=== PATIENT | male | born 1960 | race Caucasian/White ===

== ENCOUNTER 2023-01-21 23:43 | Inpatient (IN) | payer MEDICARE, MEDICAID, SELFPAY ==
[2023-01-21 23:45] VITALS: BP 163/93; PULSE 73; RESP 18; TEMP 36.6; O2SAT 98; BMI 21.7
--- NOTE | 2023-01-21 23:52 | ECG_ITS ---
[facility] Test Date: 2023-01-22 Pat Name: Mohinder Bullard Department: Room: 129 Gender: Male Stunt Man: : 1960 Requested By: Art Paris Order Number: [id number] Mahi MD: Dexter Marie M.D. Measurements Intervals Mayo Rate: 73 P: 66 HI: 138 QRS: 59 QRSD: 112 T: 74 QT: 390 QTc: 433 Interpretive Statements SINUS RHYTHM WITH FREQUENT VENTRICULAR PREMATURE COMPLEXES IN A BIGEMINAL PATTERN LEFT ATRIAL ENLARGEMENT [-0.15mV P-WAVE IN V1/V2] MODERATE INTRAVENTRICULAR CONDUCTION DELAY [110+ ms QRS DURATION] Compared to ECG 01/28/2017 12:21:06 Ventricular premature complex(es) now present Intraventricular conduction delay now present Sinus arrhythmia no longer present Indeterminate axis no longer present Right ventricular hypertrophy no longer present T-wave abnormality no longer present Electronically Signed On 01-22-2023 8:47:02 CDT by Dexter Marie M.D. [id number]
[2023-01-22 00:13] LABS: Basophils # 0.1 10^3/uL (0.0-0.1); Basophils % 0.5 %; Eosinophils # 0.5 10^3/uL (0.0-0.8); Eosinophils % 4.2 %; Hematocrit 42.4 % (42.0-52.0); Hemoglobin 13.7 g/dL (11.7-16.6); Lymphocytes # 3.6 10^3/uL (0.8-4.8); Lymphocytes % 31.2 %; Mean Corpuscular HGB Conc 32.3 g/dL (30.0-36.0); Mean Corpuscular Hemoglobin 30.6 pg (28.0-34.0); Mean Corpuscular Volume 94.6 fl (80-94); Mean Platelet Volume 10.5 fL (7.4-10.4); Monocytes # 1.2 10^3/uL (0.2-0.9); Monocytes % 10.6 %; Neutrophils # 6.16 10^3/uL (1.8-7.7); Neutrophils % 53.2 %; Nucleated Red Blood Cells % 0 %; Platelet Count 152 10^3/cmm (130-400); Red Blood Count 4.48 10^6/uL (4.1-5.3); Red Cell Distribution Width 13.9 % (12.1-15.1); White Blood Count 11.6 10^3/uL (4.0-10.0)
--- NOTE | 2023-01-22 00:16 | W.ED.PSYCHS ---
HPI - Psych General: Chief Complaint: Psychiatric Symptoms Stated Complaint: MANIC Time Seen by Provider: 01/22/23 00:15 Source: patient and EMS Mode of arrival: EMS Limitations: no limitations History of Present Illness: 62-year-old male who had called EMS for faiza I spoke to patient history is very difficult he is extremely manic he will talk for 10 minutes straight on different subjects with flight of ideas never did really get to the point. I did speak to his she states that he supposed be on sertraline he has not been sleeping over the last week he is hyper focused he has had some hallucinations thinking the devil is out to get him she states that he has made no suicidal homicidal thoughts. Here patient is not safe on his own and needs psychiatric help with acutely Associated symptoms: Reports auditory hallucinations Review of Systems Const: Denies: fever(s), chills, body aches or change in appetite Eyes: Denies: blurry vision or eye discomfort ENMT: Denies: throat pain or dental pain Resp: Denies: dyspnea GI: Denies: abdominal pain, nausea, vomiting or diarrhea Musc: Denies: neck pain or back pain Skin/Breast: Denies: rash Neuro: Denies: headache(s) Psych: Reports: sleeping less, paranoia, difficulty concentrating and auditory hallucinations [place]/Lymph: Denies: easy bruising All/Imm: Denies: urticaria Physical Exam Const: COMMON NORMALS: patient oriented x3 and healthy appearing HENMT: COMMON NORMALS: normocephalic and atraumatic HEAD & SCALP: normocephalic and atraumatic Eye: COMMON NORMALS: EOMs intact bilaterally Neck/C-Spine: COMMON NORMALS: full ROM and supple Chest: COMMONS NORMALS: normal inspection of the chest and normal palpation of entire chest wall Resp: COMMON NORMALS: normal respiratory effort, No retractions, No use of accessory muscles and clear to auscultation bilaterally AUSCULTATION: clear to auscultation bilaterally Cardio: COMMON NORMALS: regular rate, regular rhythm and No murmurs present (Cardio) RATE: regular rate RHYTHM: regular rhythm GI: COMMON NORMALS: Normal to inspection, nondistended, normoactive bowel sounds present, Soft to palpation, non-tender and no masses PALPATION: Yes Soft to palpation Extremity: COMMON NORMALS: normal to inspection and full ROM Neuro: COMMON NORMALS: patient oriented x3, moves all extremities and no focal motor deficits Psych: COMMON NORMALS: cooperative; negative for mental status grossly normal and negative for Normal thought process present SPEECH: Yes excessive THOUGHT PROCESS: abnormal, Flight of ideas present and racing thoughts INSIGHT: Good insight present (Psych) Skin: COMMON NORMALS: no rashes or lesions noted and no wounds GENERAL SKIN EXAM: no rashes or lesions noted Course Vital Signs: Vital signs: Vital Signs Temperature 98 F 01/21/23 23:45 Pulse Rate 73 01/21/23 23:45 Respiratory Rate 18 01/21/23 23:45 Blood Pressure 163/93 01/21/23 23:45 Pulse Oximetry 98 01/21/23 23:45 MDM - Psych Medical Decision Making Patient presents here with acute psychosis likely a manic episode spoke to Dr. Moise patient placed under 96-hour hold and will admit Lab Data 01/22/23 00:04 01/22/23 00:04 Laboratory Results WBC 11.6 10^3/uL (4.0-10.0) H 01/22/23 00:04 RBC 4.48 10^6/uL (4.1-5.3) 01/22/23 00:04 Hgb 13.7 g/dL (11.7-16.6) 01/22/23 00:04 Hct 42.4 % (42.0-52.0) 01/22/23 00:04 MCV 94.6 fl (80-94) H 01/22/23 00:04 MCH 30.6 pg (28.0-34.0) 01/22/23 00:04 MCHC 32.3 g/dL (30.0-36.0) 01/22/23 00:04 RDW 13.9 % (12.1-15.1) 01/22/23 00:04 Plt Count 152 10^3/cmm (130-400) 01/22/23 00:04 MPV 10.5 fL (7.4-10.4) H 01/22/23 00:04 Neut % (Auto) 53.2 % 01/22/23 00:04 Lymph % (Auto) 31.2 % 01/22/23 00:04 [place] % (Auto) 10.6 % 01/22/23 00:04 Eos % (Auto) 4.2 % 01/22/23 00:04 Baso % (Auto) 0.5 % 01/22/23 00:04 Neut # (Auto) 6.16 10^3/uL (1.8-7.7) 01/22/23 00:04 Lymph # (Auto) 3.6 10^3/uL (0.8-4.8) 01/22/23 00:04 [place] # (Auto) 1.2 10^3/uL (0.2-0.9) H 01/22/23 00:04 Eos # (Auto) 0.5 10^3/uL (0.0-0.8) 01/22/23 00:04 Baso # (Auto) 0.1 10^3/uL (0.0-0.1) 01/22/23 00:04 Nucleated RBC % (auto) 0 % 01/22/23 00:04 Nucleated RBCs # 0.0 /100WBC 01/22/23 00:04 Discharge Plan Discharge Patient Disposition: Admitted As Inpatient Clinical Impression: Acute psychosis Condition: Stable Coding Level of Care Code ED Liquor Inspector for Mehreen Gutierrez
[2023-01-22] MEDS: LORazepam 2 mg Tablet PO (00:18)
[2023-01-22] MEDS: haloperidol 5 mg Tablet PO (00:18)
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
[2023-01-22 00:33] LABS: Acetaminophen 7.9 ug/mL (10-30); Alanine Aminotransferase 11 U/L (0-41); Alkaline Phosphatase 85 U/L (40-130); Anion Gap 11.9 (5-19); Aspartate Amino Transferase 15 U/L (0-40); Blood Urea Nitrogen 14 mg/dL (8-23); Calcium 8.6 mg/dL (8.5-10.5); Carbon Dioxide 28 mmol/L (22-29); Chloride 106 mmol/L (98-107); Globulin 2.1 g/dL (1.3-4.6); Glucose 91 mg/dL (65-115); Osmolality Calculated 294 mOsm/kg (285-295); Potassium 3.9 mmol/L (3.5-5.1); Sodium 142 mmol/L (136-145); Total Bilirubin 0.4 mg/dL (0.15-1.2); Total Protein 6.1 g/dL (6.6-8.7)
[2023-01-22 00:34] LABS: Alcohol Level < 10 mg/dL (0-10); Salicylate < 0.3 mg/dL (3-10)
[2023-01-22 00:45] LABS: Amphetamines Screen Urine Negative (Negative); Barbiturates Screen Urine Negative (Negative); Benzodiazepines Screen Urine Positive (Negative); Cocaine Screen Urine Negative (Negative); Opiate Screen Urine Negative (Negative); PCP Screen Urine Negative (Negative); THC Screen Urine Positive (Negative)
[2023-01-22 01:00] VITALS: BP 107/76; PULSE 60; RESP 16; O2SAT 95
[2023-01-22 01:19] VITALS: BP 113/61; PULSE 77; RESP 12; TEMP 36.8; O2SAT 96
[2023-01-22] MEDS: blistex lip oint 7 gm Tube 1 APPLIC TOPICAL (01:37)
--- NOTE | 2023-01-22 02:42 | PC.NURSE ---
Pt arrived to NPU w/RN and security at side. Pt presents extremely manic and is difficult to complete assessment, as he perseverated on how this was his 's fault but then changes tactics to say that she is taking good care of him and this all resulted from her misunderstanding what he was saying. Pt denies all AVH, SI/HI. Assessment completed and pt taken to room.
[2023-01-22] MEDS: trazodone 50 mg Tablet PO ×2 (05:27→20:17)
[2023-01-22 06:00] VITALS: BP 102/69; PULSE 50; RESP 12; TEMP 36.8; O2SAT 96
[2023-01-22] MEDS: OLANZapine 5 mg ODT PO ×2 (06:20→20:47)
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
--- NOTE | 2023-01-22 08:35 | PC.NURSE ---
During morning assessment, patient denied anxiety, depression, thoughts of SI, HI, and AVH. No concerns voiced by patient. Patient informed by this nurse to notify staff if any issues arise. Understanding voiced.
[2023-01-22 14:00] VITALS: BP 94/54; PULSE 72; RESP 18; TEMP 36.8; O2SAT 94
--- NOTE | 2023-01-22 16:52 | PC.NURSE ---
Talked to patient's during visiting hour. Patient had head CT and bloodwork this week at [facility] to rule out stroke. CT was normsl. Patient was told he was hypomanic then. Patient has not taken abilify, invega, lithium or depakote. Patient is prescribed zoloft and xanax by his PCP, Dr. Oleary at [facility] in [place]. Patient has been taking these meds intermitently for over 10 years. Patient's stated that patient has experienced episodes of hypermania that last a few days to a week, before patient drops and enters a deep depression. The episode patient is experiencing now began at the end of November. patient has been confused, frustrated, irritable, not eating and not sleeping.
[2023-01-22] MEDS: carvedilol 6.25 mg Tablet 12.5 MG PO (17:28)
[2023-01-22] MEDS: atorvastatin 40 mg Tablet PO (20:16)
[2023-01-22] MEDS: hyDROXYzine 25 mg Capsule 50 MG PO (20:17)
--- NOTE | 2023-01-22 20:41 | PC.NURSE ---
Pt's called to check on pt and to discuss concerns regarding the meeting she had w/Dr. Moise today regarding starting abilify and transitioning sustained injections. She stated that she had read on abilify and was concerned w/what she read that it could cause increased impulse control which she states he already has issues with. She also stated concerned w/his heart issues . Will refer to physician.
[2023-01-22] MEDS: ALPRAZolam 0.5 mg Tablet PO (20:47)
[2023-01-22 21:41] VITALS: BP 114/67; PULSE 52; RESP 17; TEMP 36.8; O2SAT 96
[2023-01-23] MEDS: diphenhydrAMINE 50 mg Capsule PO (00:24)
[2023-01-23] MEDS: haloperidol 5 mg Tablet PO (00:24)
[2023-01-23 06:00] VITALS: RESP 15
[2023-01-23] MEDS: levothyroxine 25 mcg Tablet 12.5 MCG PO ×2 (06:51→09:34)
[2023-01-23] MEDS: carvedilol 6.25 mg Tablet 12.5 MG PO ×2 (09:34→17:32)
[2023-01-23] MEDS: clopidogrel 75 mg Tablet PO (09:34)
[2023-01-23] MEDS: lisinopril 10 mg Tablet PO (09:35)
[2023-01-23 14:00] VITALS: BP 150/100; PULSE 78; RESP 16; TEMP 37.1; O2SAT 96
--- NOTE | 2023-01-23 16:04 | W.PM.NPUPNS ---
Subjective NPU Subjective: Patient presented today reporting that he is doing okay. He tolerated the new room without incident. He apologized for being a problem. He denied any side effects to the medication and reports that he is feeling he continues to have a rambling related delivery of answers and was focused on a patient that have been helpful to him but could not explain the purpose of us talking about that person. Mental Status Exam MSE Comments: This is a slender but well-nourished well-developed older white male, in hospital scrubs, with adequate grooming and eye contact. No abnormal movements except for mild psychomotor agitation. Cooperative with exam in mild distress. Speech was slightly increased rate and normal volume and somewhat pressured. Mood described as good; affect elevated. Thought process, mostly organized, but occasionally tangential. Thought content: patient denied any suicidal or homicidal ideation, there were no delusions reported or noted, patient denied any auditory or visual hallucinations. Attention and concentration were limited, and memory appeared mostly intact but he will get forgetful about what he was talking about with almost every topic, but none were formally tested. Alert and oriented times three. Insight and judgment are fair. Impulse control is limited. Vitals/I&O/Wt Last Vital Signs Temp 98.8 F 01/23/23 14:00 Pulse 78 01/23/23 14:00 Resp 16 01/23/23 14:00 BP 150/100 01/23/23 14:00 Pulse Ox 96 01/23/23 14:00 O2 Del Method Room Air 01/23/23 14:00 Weight last 48 hrs Weight 75.013 kg Weight 75.013 kg Data NPU 01/22/23 00:04 01/22/23 00:04 A&P Assessment and plan (1) Acute psychosis: (2) Bipolar affective disorder, current episode manic: Plan This is a 62-year-old white male with a more recent history of possible TBI and episodes of faiza and depression likely representing bipolar disorder who presents off of medication but open to medication trial. 1. Continue current medication. 2. Started Abilify 10 mg p.o. every morning. 3. Encourage individual, group, and milieu therapy. 4. Continue q-15-minute checks for safety. Involuntary Hold Information 96 Hour Hold: 96 Hour Involuntary Admission: Yes 96 Hour Hold Ending Date: 01/27/23 96 Hour Hold Ending Time: 00:25 Attestations NPU Medical Necessity Statement*: Inpatient hospitalization is medically necessary and the clinically appropriate intervention, at this time. We will monitor medications and make changes as indicated. Likely length of stay is three to five days. Coding Level of Care Code Acute Code for Chg Fwd Diagnoses Acute psychosis F23 Bipolar affective disorder, current episode manic F31.10
[2023-01-23] MEDS: ALPRAZolam 0.5 mg Tablet PO (17:32)
[2023-01-23] MEDS: nicotine 2 mg Gum BUCCAL (18:15)
[2023-01-23 20:12] VITALS: BP 139/77; PULSE 65; RESP 18; TEMP 36.7; O2SAT 95
[2023-01-23] MEDS: hyDROXYzine 25 mg Capsule 50 MG PO (21:00)
[2023-01-23] MEDS: OLANZapine 5 mg ODT PO (21:00)
[2023-01-23] MEDS: trazodone 50 mg Tablet PO (21:00)
[2023-01-23] MEDS: atorvastatin 40 mg Tablet PO (21:01)
[2023-01-24 06:00] VITALS: BP 139/79; PULSE 65; RESP 17; TEMP 36.8; O2SAT 98
[2023-01-24] MEDS: nicotine 2 mg Gum BUCCAL ×3 (07:03→20:25)
--- NOTE | 2023-01-24 07:30 | W.PM.NPUPNS ---
Subjective NPU Subjective: Patient presented today continuing to have very circular conversation. Continuing to have anxiety about just about every thing we discussed. Initially not wanting to speak to this writer producer because he did not have myself prepared to talk to him. Discussing every minuscule aspect of conversation and interaction including how wide the door is open and how that might allow for a bigger or smaller person to get through the door. Mental Status Exam MSE Comments: This is a slender but well-nourished well-developed older white male, in hospital scrubs, with adequate grooming and eye contact. No abnormal movements except for mild psychomotor agitation. Cooperative with exam in mild distress. Speech was slightly increased rate and normal volume and somewhat pressured. Mood described as good; affect elevated. Thought process, mostly organized, but occasionally tangential. Thought content: patient denied any suicidal or homicidal ideation, there were no delusions reported or noted, patient denied any auditory or visual hallucinations. Attention and concentration were limited, and memory appeared mostly intact but he will get forgetful about what he was talking about with almost every topic, but none were formally tested. Alert and oriented times three. Insight and judgment are fair. Impulse control is limited. Vitals/I&O/Wt Last Vital Signs Temp 98.2 F 01/24/23 06:00 Pulse 65 01/24/23 06:00 Resp 17 01/24/23 06:00 BP 139/79 01/24/23 06:00 Pulse Ox 98 01/24/23 06:00 O2 Del Method Room Air 01/24/23 06:00 Weight last 48 hrs Weight 75.013 kg Weight 75.013 kg Data NPU 01/22/23 00:04 01/22/23 00:04 A&P Assessment and plan (1) Acute psychosis: (2) Bipolar affective disorder, current episode manic: Plan This is a 62-year-old white male with a more recent history of possible TBI and episodes of faiza and depression likely representing bipolar disorder who presents off of medication but open to medication trial. 1. Continue current medication. 2. Started Abilify 10 mg p.o. every morning. 3. Encourage individual, group, and milieu therapy. 4. Continue q-15-minute checks for safety. Involuntary Hold Information 96 Hour Hold: 96 Hour Involuntary Admission: Yes 96 Hour Hold Ending Date: 01/27/23 96 Hour Hold Ending Time: 00:25 Attestations NPU Medical Necessity Statement*: Inpatient hospitalization is medically necessary and the clinically appropriate intervention, at this time. We will monitor medications and make changes as indicated. Likely length of stay is three to five days. Coding Level of Care Code Acute Code for Chg Fwd Diagnoses Acute psychosis F23 Bipolar affective disorder, current episode manic F31.10
[2023-01-24] MEDS: levothyroxine 25 mcg Tablet 12.5 MCG PO (07:57)
[2023-01-24] MEDS: lisinopril 10 mg Tablet PO (07:57)
[2023-01-24] MEDS: carvedilol 6.25 mg Tablet 12.5 MG PO ×2 (07:57→18:05)
[2023-01-24] MEDS: clopidogrel 75 mg Tablet PO (07:57)
[2023-01-24] MEDS: ARIPiprazole 10 mg Tablet PO (11:13)
[2023-01-24] MEDS: hyDROXYzine 25 mg Capsule 50 MG PO (12:51)
--- NOTE | 2023-01-24 13:23 | PC.NURSE ---
Patient stating that he is having heart palpitations caused by the Abilify that he was just started on. Patient says that he also thinks that it is helping him. This nurse left note on Dr. Moise desk to inform him and will verbally tell him the patient's concerns
[2023-01-24 14:00] VITALS: BP 156/74; PULSE 62; RESP 16; TEMP 36.9; O2SAT 97
[2023-01-24] MEDS: OLANZapine 5 mg ODT PO (15:11)
[2023-01-24 20:03] VITALS: BP 138/77; PULSE 67; RESP 18; TEMP 36.9; O2SAT 97
[2023-01-24] MEDS: atorvastatin 40 mg Tablet PO (20:13)
[2023-01-24] MEDS: trazodone 50 mg Tablet PO (20:13)
[2023-01-24] MEDS: CLONazepam 1 mg Tablet PO (20:13)
[2023-01-24] MEDS: ALPRAZolam 0.5 mg Tablet PO (20:14)
[2023-01-25] MEDS: TRAMadol 50 mg Tablet PO (02:51)
[2023-01-25 06:00] VITALS: RESP 16
[2023-01-25] MEDS: lisinopril 10 mg Tablet PO (08:39)
[2023-01-25] MEDS: carvedilol 6.25 mg Tablet 12.5 MG PO ×2 (08:40→17:54)
[2023-01-25] MEDS: clopidogrel 75 mg Tablet PO (08:40)
[2023-01-25] MEDS: levothyroxine 25 mcg Tablet 12.5 MCG PO (08:40)
[2023-01-25] MEDS: ARIPiprazole 10 mg Tablet PO (08:40)
[2023-01-25] MEDS: nicotine 2 mg Gum BUCCAL (08:44)
[2023-01-25] MEDS: ALPRAZolam 0.5 mg Tablet PO ×2 (08:44→20:09)
[2023-01-25] MEDS: hyDROXYzine 25 mg Capsule 50 MG PO ×2 (08:58→17:54)
--- NOTE | 2023-01-25 11:09 | W.PM.NPUPNS ---
Subjective NPU Subjective: Patient presents today with continuation of his circuitous speech and continued tangential reasoning. His level of disorganization is challenging the patient's as he has the same kind of interactions with him as he is having with this staff writer. He spent most of the time today focused on being able to leave when I thought he was ready but him forwarding the idea that he might be ready. We discussed the fact that concerns about his continued disorganization and that we would speak with his about how she sees things compared to baseline. Mental Status Exam MSE Comments: This is a slender but well-nourished well-developed older white male, in hospital scrubs, with adequate grooming and eye contact. No abnormal movements except for mild psychomotor agitation. Cooperative with exam in mild distress. Speech was slightly increased rate and normal volume and somewhat pressured. Mood described as good; affect elevated. Thought process, mostly organized, but occasionally tangential. Thought content: patient denied any suicidal or homicidal ideation, there were no delusions reported or noted, patient denied any auditory or visual hallucinations. Attention and concentration were limited, and memory appeared mostly intact but he will get forgetful about what he was talking about with almost every topic, but none were formally tested. Alert and oriented times three. Insight and judgment are fair. Impulse control is limited. Vitals/I&O/Wt Last Vital Signs Temp 98.4 F 01/24/23 20:03 Pulse 67 01/24/23 20:03 Resp 16 01/25/23 06:00 BP 138/77 01/24/23 20:03 Pulse Ox 97 01/24/23 20:03 O2 Del Method Room Air 01/24/23 06:00 Data NPU 01/22/23 00:04 01/22/23 00:04 A&P Assessment and plan (1) Acute psychosis: (2) Bipolar affective disorder, current episode manic: Plan This is a 62-year-old white male with a more recent history of possible TBI and episodes of faiza and depression likely representing bipolar disorder who presents off of medication but open to medication trial. 1. Continue current medication. 2. Started Abilify 10 mg p.o. every morning. 3. Encourage individual, group, and milieu therapy. 4. Continue q-15-minute checks for safety. 5. We will speak with about where he is compared to baseline. Seems like he continues to have significant challenges but he reports that she is saying he is basically better and she is ready for him to come well. At this point there is a likelihood for extension to a 21-day hold Involuntary Hold Information 96 Hour Hold: 96 Hour Involuntary Admission: Yes 96 Hour Hold Ending Date: 01/27/23 96 Hour Hold Ending Time: 00:25 Attestations NPU Medical Necessity Statement*: Inpatient hospitalization is medically necessary and the clinically appropriate intervention, at this time. We will monitor medications and make changes as indicated. Likely length of stay is three to five days. Coding Level of Care Code Acute Code for Chg Fwd Diagnoses Acute psychosis F23 Bipolar affective disorder, current episode manic F31.10
[2023-01-25] MEDS: OLANZapine 5 mg ODT PO (13:10)
--- NOTE | 2023-01-25 13:10 | PC.NURSE ---
PRN ZYPREXA ZYDIS 5 MG GIVEN PO PER PT C/O FURTHER ANXIETY/AGITATION. PRESSURED SPEECH NOTED.
[2023-01-25 13:53] VITALS: BP 103/69; PULSE 66; RESP 16; TEMP 36.6; O2SAT 95
[2023-01-25] MEDS: haloperidol 5 mg Tablet PO (17:54)
[2023-01-25] MEDS: atorvastatin 40 mg Tablet PO (20:09)
[2023-01-25] MEDS: CLONazepam 1 mg Tablet PO (20:09)
[2023-01-25] MEDS: trazodone 50 mg Tablet PO (20:09)
[2023-01-25 20:22] VITALS: PULSE 42; RESP 18; TEMP 36.8; O2SAT 97
--- NOTE | 2023-01-26 06:41 | PC.NURSE ---
pt resting resp 18
--- NOTE | 2023-01-26 06:43 | W.PM.NPUPNS ---
Subjective NPU Subjective: Patient presented today continuing to be fairly pressured in his speech and unable to speak without being circuitous. He however is convinced that his is believing that he is completely cured so we continue to discuss a plan to ensure that she is not in disagreement with us as we plan to extend his 96-hour hold. He feels he is ready to go home and that he has been helped tremendously by the medication but there are many signs of him being out of this manic state. Mental Status Exam MSE Comments: This is a slender but well-nourished well-developed older white male, in hospital scrubs, with adequate grooming and eye contact. No abnormal movements except for mild psychomotor agitation. Cooperative with exam in mild distress. Speech was slightly increased rate and normal volume and somewhat pressured. Mood described as good; affect elevated. Thought process, mostly organized, but occasionally tangential. Thought content: patient denied any suicidal or homicidal ideation, there were no delusions reported or noted, patient denied any auditory or visual hallucinations. Attention and concentration were limited, and memory appeared mostly intact but he will get forgetful about what he was talking about with almost every topic, but none were formally tested. Alert and oriented times three. Insight and judgment are fair. Impulse control is limited. Vitals/I&O/Wt Last Vital Signs Temp 98.2 F 01/25/23 20:22 Pulse 42 L 01/25/23 20:22 Resp 18 01/25/23 20:22 BP 103/69 01/25/23 13:53 Pulse Ox 97 01/25/23 20:22 O2 Del Method Room Air 01/25/23 20:22 Data NPU 01/22/23 00:04 01/22/23 00:04 A&P Assessment and plan (1) Acute psychosis: (2) Bipolar affective disorder, current episode manic: Plan This is a 62-year-old white male with a more recent history of possible TBI and episodes of faiza and depression likely representing bipolar disorder who presents off of medication but open to medication trial. 1. Continue current medication. 2. Started Abilify 10 mg p.o. every morning. 3. Encourage individual, group, and milieu therapy. 4. Continue q-15-minute checks for safety. 5. We will speak with about where he is compared to baseline. Seems like he continues to have significant challenges but he reports that she is saying he is basically better and she is ready for him to come well. At this point there is a likelihood for extension to a 21-day hold Involuntary Hold Information 96 Hour Hold: 96 Hour Involuntary Admission: Yes 96 Hour Hold Ending Date: 01/27/23 96 Hour Hold Ending Time: 00:25 Attestations NPU Medical Necessity Statement*: Inpatient hospitalization is medically necessary and the clinically appropriate intervention, at this time. We will monitor medications and make changes as indicated. Likely length of stay is three to five days. Coding Level of Care Code Acute Code for Chg Fwd Diagnoses Acute psychosis F23 Bipolar affective disorder, current episode manic F31.10
[2023-01-26] MEDS: carvedilol 6.25 mg Tablet 12.5 MG PO ×2 (08:48→17:39)
[2023-01-26] MEDS: ARIPiprazole 10 mg Tablet PO (08:48)
[2023-01-26] MEDS: lisinopril 10 mg Tablet PO (08:49)
[2023-01-26] MEDS: clopidogrel 75 mg Tablet PO (08:49)
[2023-01-26] MEDS: levothyroxine 25 mcg Tablet 12.5 MCG PO (08:49)
[2023-01-26] MEDS: nicotine 2 mg Gum BUCCAL (09:09)
--- NOTE | 2023-01-26 09:43 | PC.NURSE ---
Talked to patient's . Patient's says that he is a lot better than he was, but not where he needs to be. Patient's is said that patient is acting more agitated than normal. he will be happy, but easily agitated. says that she doesn't think that he is ready to come home. She is concerned that because how easily agitated he is, the daughter might cause him to be agitated. says he would not harm daughter, but it would hurt her feelings by being agitated with her.
[2023-01-26] MEDS: hyDROXYzine 25 mg Capsule 50 MG PO ×2 (12:59→20:02)
--- NOTE | 2023-01-26 13:00 | PC.NURSE ---
Patient reporting anxiety due to fellow patients. This nurse administered 50mg Vistaril to patient. Encourage patient to return to room in the quiet.
[2023-01-26 14:00] VITALS: BP 150/64; PULSE 54; RESP 16; TEMP 36.8; O2SAT 99
[2023-01-26] MEDS: phenol oral Spray 177 mL 3 SPRAY MUCOUS MEM ×2 (14:36→21:02)
[2023-01-26] MEDS: trazodone 50 mg Tablet PO (20:02)
[2023-01-26] MEDS: atorvastatin 40 mg Tablet PO (20:02)
[2023-01-26] MEDS: CLONazepam 1 mg Tablet PO (20:02)
[2023-01-26 21:04] VITALS: BP 145/94; PULSE 62; RESP 16; TEMP 36.4; O2SAT 97
[2023-01-27] MEDS: phenol oral Spray 177 mL 3 SPRAY MUCOUS MEM (02:17)
[2023-01-27] MEDS: OLANZapine 5 mg ODT PO (02:53)
[2023-01-27] MEDS: hyDROXYzine 25 mg Capsule 50 MG PO ×3 (02:53→20:28)
[2023-01-27 06:00] VITALS: BP 110/50; PULSE 78; RESP 18; TEMP 36.8; O2SAT 95
[2023-01-27] MEDS: nicotine 2 mg Gum BUCCAL (09:13)
[2023-01-27] MEDS: clopidogrel 75 mg Tablet PO (10:02)
[2023-01-27] MEDS: benztropine 1 mg Tablet PO (10:02)
[2023-01-27] MEDS: carvedilol 6.25 mg Tablet 12.5 MG PO ×2 (10:02→18:38)
[2023-01-27] MEDS: lisinopril 10 mg Tablet PO (10:03)
[2023-01-27] MEDS: FUROsemide 40 mg Tablet PO (10:03)
[2023-01-27] MEDS: levothyroxine 25 mcg Tablet 12.5 MCG PO (10:03)
[2023-01-27] MEDS: ARIPiprazole 10 mg Tablet PO (10:03)
[2023-01-27 13:57] VITALS: BP 92/66; PULSE 50; RESP 17; TEMP 36.7; O2SAT 97
[2023-01-27] MEDS: CLONazepam 1 mg Tablet PO (20:28)
[2023-01-27] MEDS: trazodone 50 mg Tablet PO (20:28)
[2023-01-27] MEDS: atorvastatin 40 mg Tablet PO (20:28)
[2023-01-27 20:46] VITALS: BP 115/53; PULSE 58; RESP 18; TEMP 36.9; O2SAT 97
--- NOTE | 2023-01-28 05:38 | P.NPUPN_ITS ---
Subjective NPU Subjective: Patient presented today reporting that he is doing better and that his agrees. She does appear to feel that he is less over the top. Discussions with him today to suggest slight improvement and we discussed the risks, benefits and alternatives of increasing his Abilify to 15 mg and he understood and agreed to proceed as is documented in this note. We agreed we would take it a day at a time and discharge him as soon as was reasonable. Mental Status Exam MSE Comments: This is a slender but well-nourished well-developed older white male, in hospital scrubs, with adequate grooming and eye contact. No abnormal movements except for mild psychomotor agitation. Cooperative with exam in mild distress. Speech was slightly increased rate and normal volume and somewhat pressured. Mood described as good; affect slightly less elevated. Thought process, mostly organized, but occasionally tangential. Thought content: patient denied any suicidal or homicidal ideation, there were no delusions reported or noted, patient denied any auditory or visual hallucinations. Attention and concentrat ion were limited, and memory appeared mostly intact but he will get forgetful about what he was talking about with almost every topic, but none were formally tested. Alert and oriented times three. Insight and judgment are fair. Impulse control is limited. Vitals/I&O/Wt Last Vital Signs Temp 98.5 F 01/27/23 20:46 Pulse 58 L 01/27/23 20:46 Resp 18 01/27/23 20:46 BP 115/53 01/27/23 20:46 Pulse Ox 97 01/27/23 20:46 O2 Del Method Room Air 01/27/23 20:46 Data NPU 01/22/23 00:04 01/22/23 00:04 A&P Assessment and plan (1) Acute psychosis: (2) Bipolar affective disorder, current episode manic: Plan This is a 62-year-old white male with a more recent history of possible TBI and episodes of faiza and depression likely representing bipolar disorder who presents off of medication but open to medication trial. 1. Continue current medication. 2. Started Abilify 10 mg p.o. every morning. Increase to 15 mg p.o. daily 3. Encourage individual, group, and milieu therapy. 4. Continue q-15-minute checks for safety. 5. We will speak with about where he is compared to baseline. Seems like he continues to have challenges but he reports that she is saying he is basically better and she is ready for him to come well. We filed 21-day hold paperwork but discussed improvements and hopes to discharge soon. Involuntary Hold Information 96 Hour Hold: 96 Hour Involuntary Admission: Yes 96 Hour Hold Ending Date: 01/27/23 96 Hour Hold Ending Time: 00:25 Attestations NPU Medical Necessity Statement*: Inpatient hospitalization is medically necessary and the clinically appropriate intervention, at this time. We will monitor medications and make changes as indicated. Likely length of stay is 2-4 days. Coding Level of Care Code Acute Code for Chg Fwd Diagnoses Acute psychosis F23 Bipolar affective disorder, current episode manic F31.10
[2023-01-28 06:00] VITALS: BP 117/77; PULSE 66; RESP 18; TEMP 36.7; O2SAT 95
[2023-01-28] MEDS: carvedilol 6.25 mg Tablet 12.5 MG PO (07:38)
[2023-01-28] MEDS: ARIPiprazole 10 mg Tablet 15 MG PO (07:38)
[2023-01-28] MEDS: hyDROXYzine 25 mg Capsule 50 MG PO ×2 (07:39→14:26)
[2023-01-28] MEDS: TRAMadol 50 mg Tablet PO (07:39)
[2023-01-28] MEDS: lisinopril 10 mg Tablet PO (07:40)
[2023-01-28] MEDS: clopidogrel 75 mg Tablet PO (07:40)
[2023-01-28] MEDS: levothyroxine 25 mcg Tablet 12.5 MCG PO (07:43)
[2023-01-28] MEDS: nicotine 2 mg Gum BUCCAL (09:21)
--- NOTE | 2023-01-28 14:25 | DCPLANNER ---
Imm was printed and copy was given to pt and rights given and copy placed in chart.
--- NOTE | 2023-01-28 15:51 | P.NPUDS_ITS ---
Diagnoses at Discharge Discharge Diagnosis (1) Acute psychosis: Status: Acute (2) Bipolar affective disorder, current episode manic: Status: Acute Reason for Visit Reason for Visit: MANIC Brief History: History of Present Illness Mohinder Bullard is a 62 year old male who presented to the emergency department with the following report: Chief Complaint: Psychiatric Symptoms Stated Complaint: MANIC Time Seen by Provider: 01/22/23 00:15 Source: patient and EMS Mode of arrival: EMS Limitations: no limitations History of Present Illness: ? 62-year-old male who had called EMS for faiza I spoke to patient history is very difficult he is extremely manic he will talk for 10 minutes straight on different subjects with flight of ideas never did really get to the point.? I did speak to his she states that he supposed be on sertraline he has not been sleeping over the last week he is hyper focused he has had some hallucinations thinking the devil is out to get him she states that he has made no suicidal homicidal thoughts.? Here patient is not safe on his own and needs psychiatric help with acutely ? Associated symptoms: Reports auditory hallucinations The patient was admitted to the neuropsychiatric unit for definitive treatment of those issues. The patient presents today reporting that he has been having pressured speech sometimes and has thoughts coming too quickly and other times can?t find the right words. He reports that he has not had these issues his whole life. He reports that he has not had previous psychiatric hospitalizations. He reports that he has never seen a psychiatrist before. We discussed that he was feeling upset by the move to the room he is in currently, but at first he had a hard time explaining why, but then said that another resident said something about a roommate trying to kill him in that room. He called in another patient to retell what he had told the patient earlier, about some kind of incident, but at first the other resident did not say anything about a killing, but then made confusing statements. The patient reports that he has been having trouble sleeping and having racing thoughts. He has had outpatient services. We reviewed that he did not have these symptoms earlier in his life; then he had a medical emergency a few years ago, a heart attack, and there was a concern about an oxygen deficit. He reports that he clinically twice. Afterwards he was able to make more of a recovery than they thought he might, but has had some cognitive difficulties. The patient reports that he has been for 10 years and has an 8 year old daughter. He is twenty years older than his . 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 He also has two older daughters, 40 and 30 year old, and has grandkids. He reports that his youngest granddaughter, Nathaly, and his daughter, Pat, look like sisters. He endorses that recently he has been having some epis odes where he just gets out or sorts. We discussed starting a mood stabilizer. We discussed that he is currently on Zoloft, and that we might discontinue that but will start with adding Abilify. PSYCHIATRIC HISTORY: As above. SUBSTANCE ABUSE HISTORY: Hospital Course Hospital Course He slowly acclimated to the individual, group and milieu therapies provided.??He presented having clear hyperkinetic behavior and faiza. He was started on Abilify 10 mg p.o. daily and was increased to 15 mg p.o. daily. His is very supportive and gave good information to help with understanding his baseline. He worked with the social work team to make sure he had appropriate follow-up/aftercare in place.? He had significant improvement and was able to contract for safety outside of the hospital prior to discharge.? During the hospitalization, patient had routine laboratory studies which were within normal limits except for few outliers.? Additionally there was a general medical evaluation which was also within normal limits and revealed no new acute processes. At the time of discharge, he denied psychosis or lethality, and psychosis was resolving.? Mood and anxiety were well managed.? Patient endorsed a plan to avoid all drugs of abuse and follow-up with the aftercare recommendations of the treatment team.? Patient was evaluated and deemed to be absent credible lethality, and had achieved the maximum benefit from an inpatient hospitalization, so was discharged.? Involuntary Hold Information 96 Hour Hold: 96 Hour Involuntary Admission: Yes 96 Hour Hold Ending Date: 01/27/23 96 Hour Hold Ending Time: 00:25 Mental Status Exam MSE Comments: This is a slender but well-nourished well-developed older white male, in hospital scrubs, with adequate grooming and eye contact. No abnormal movements except for mild psychomotor agitation. Cooperative with exam in mild distress. Speech was slightly increased rate and normal volume and somewhat pressured. Mood described as good; affect slightly less elevated. Thought process, mostly organized, but occasionally tangential. Thought content: patient denied any suicidal or homicidal ideation, there were no delusions reported or noted, patient denied any auditory or visual hallucinations. Attention and concentration were limited, and memory appeared mostly intact but he will get forgetful about what he was talking about with almost every topic, but none were formally tested. Alert and oriented times three. Insight and judgment are fair. Impulse control is limited. Discharge Data Studies Completed and Pending: Laboratory Results WBC 11.6 10^3/uL (4.0 -10.0) H 01/22/23 00:04 RBC 4.48 10^6/uL (4.1 -5.3) 01/22/23 00:04 Hgb 13.7 g/dL (11.7-1 6.6) 01/22/23 00:04 Hct 42.4 % (42.0-52.0 ) 01/22/23 00:04 MCV 94.6 fl (80-94) H 01/22/23 00:04 MCH 30.6 pg (28.0-34. 0) 01/22/23 00:04 MCHC 32.3 g/dL (30.0-3 6.0) 01/22/23 00:04 RDW 13.9 % (12.1-15.1 ) 01/22/23 00:04 Plt Count 152 10^3/cmm (130 -400) 01/22/23 00:04 MPV 10.5 fL (7.4-10.4 ) H 01/22/23 00:04 Neut % (Auto) 53.2 % 01/22/23 00:04 Lymph % (Auto) 31.2 % 01/22/23 00:04 [place] % (Auto) 10.6 % 01/22/23 00:04 Eos % (Auto) 4.2 % 01/22/23 00:04 Baso % (Auto) 0.5 % 01/22/23 00:04 Neut # (Auto) 6.16 10^3/uL (1.8 -7.7) 01/22/23 00:04 Lymph # (Auto) 3.6 10^3/uL (0.8- 4.8) 01/22/23 00:04 [place] # (Auto) 1.2 10^3/uL (0.2- 0.9) H 01/22/23 00:04 Eos # (Auto) 0.5 10^3/uL (0.0- 0.8) 01/22/23 00:04 Baso # (Auto) 0.1 10^3/uL (0.0- 0.1) 01/22/23 00:04 Nucleated RBC % (a uto) 0 % 01/22/23 00:04 Nucleated RBCs # 0.0 /100WBC 01/22/23 00:04 Sodium 142 mmol/L (136-1 45) 01/22/23 00:04 Potassium 3.9 mmol/L (3.5-5 .1) 01/22/23 00:04 Chloride 106 mmol/L (98-10 7) 01/22/23 00:04 Carbon Dioxide 28 mmol/L (22-29) 01/22/23 00:04 Anion Gap 11.9 (5-19) 01/22/23 00:04 BUN 14 mg/dL (8-23) 01/22/23 00:04 Creatinine 1.2 mg/dL (0.7-1. 2) 01/22/23 00:04 GFR Calculation 61.0 mL/min (90-1 30) L 01/22/23 00:04 Glucose 91 mg/dL (65-115) 01/22/23 00:04 Calculated Osmolal ity 294 mOsm/kg (285- 295) 01/22/23 00:04 Calcium 8.6 mg/dL (8.5-10 .5) 01/22/23 00:04 Total Bilirubin 0.4 mg/dL (0.15-1 .2) 01/22/23 00:04 AST 15 U/L (0-40) 01/22/23 00:04 ALT 11 U/L (0-41) 01/22/23 00:04 Alkaline Phosphata se 85 U/L (40-130) 01/22/23 00:04 Total Protein 6.1 g/dL (6.6-8.7 ) L 01/22/23 00:04 Albumin 4.0 g/dL (3.5-5.2 ) 01/22/23 00:04 Globulin 2.1 g/dL (1.3-4.6 ) 01/22/23 00:04 Salicylates < 0.3 mg/dL (3-10 ) L 01/22/23 00:04 Urine Opiates Scre en Negative ng/mL (N egative) 01/22/23 00:27 Acetaminophen 7.9 ug/mL (10-30) L 01/22/23 00:04 Ur Barbiturates Sc reen Negative ng/mL (N egative) 01/22/23 00:27 Ur Phencyclidine S crn Negative ng/mL (N egative) 01/22/23 00:27 Ur Amphetamines Sc reen Negative ng/mL (N egative) 01/22/23 00:27 U Benzodiazepines Scrn Positive ng/mL (N egative) H 01/22/23 00:27 Urine Cocaine Scre en Negative ng/mL (N egative) 01/22/23 00:27 U Marijuana (THC) Screen Positive ng/mL (N egative) H 01/22/23 00:27 Ethyl Alcohol < 10 mg/dL (0-10) 01/22/23 00:04 Vitals: Last Vital Signs Temp 98.0 F 01/28/23 06:00 Pulse 66 01/28/23 06:00 Resp 18 01/28/23 06:00 BP 117/77 01/28/23 06:00 Pulse Ox 95 01/28/23 06:00 O2 Del Method Room Air 01/28/23 06:00 Discharge Plan Discharge Patient Disposition: Home Condition: Stable Prescriptions: New levothyroxine 25 mcg Tablet 12.5 mcg PO DAILY 30 Days Qty: 15 1RF aripiprazole 15 mg tablet 15 mg PO DAILY 30 Days Qty: 30 1RF clonazepam 1 mg Tablet 1 mg PO BEDTIME 15 Days Qty: 15 0RF Rx Instructions: Decreased to one half daily prn benztropine 1 mg Tablet 1 mg PO BID PRN (Reason: Mild Extrapyramidal symptoms) 30 Days Qty: 30 1RF trazodone 50 mg Tablet 50 mg PO BEDTIME PRN (Reason: Sleep) 30 Days Qty: 30 1RF hydroxyzine pamoate 25 mg Capsule 50 mg PO Q6H PRN (Reason: Anxiety) 30 Days Qty: 120 1RF Continued albuterol sulfate [ProAir HFA] 90 mcg/actuation HFA aerosol inhaler 2 puff INHALATION PRN PRN (Reason: Shortness Of Breath Or Wheezing) alprazolam [Xanax] 1 mg tablet 1 mg PO PRN PRN (Reason: Anxiety) Lipitor 40 mg tablet 40 mg PO BEDTIME Coreg 12.5 mg tablet 12.5 mg PO BID Plavix 75 mg tablet 75 mg PO DAILY Lasix 40 mg tablet 40 mg PO DAILY lisinopril [Zestril] 10 mg tablet 10 mg PO DAILY tramadol 50 mg tablet 50 mg PO PRN PRN (Reason: Moderate Pain (Scale Score 5-6)) Discontinued levothyroxine [Synthroid] 25 mcg tablet 25 mcg PO DAILY Discharge Orders: Discharge Order (Routine); Ordered 01/28/23 Ordered By: Fernandez Moise Referrals: [facility] [Outside] - 02/03/23 10:15 am (Initial telehealth appointment at office with Stephanie Jo at 10:15 am. ) [facility] [Referring] - 02/01/23 2:30 pm (Hospital follow up with Lupe Roca NP.) Discharge Diet: Regular Discharge Activity: Resume usual activity Patient Instructions: Opioid Safety Discharge Attestations NPU Time Spent in Discharge Care*: less than 30 min Specific Discharge Activities: Specific discharge activities: educating patient, discussing with telephonic nurse case manager/social workers/dc planners, documenting/other paperwork and evaluating patient/reviewing data Coding Level of Care Code Acute Chg FW DC note Diagnoses Acute psychosis F23 Bipolar affective disorder, current episode manic F31.10
[2023-01-28 15:55] VITALS: BP 117/77; PULSE 66; RESP 18; TEMP 36.7; O2SAT 95
== END 2023-01-28 16:45 | disposition home or self-care (01) | DRG 885 ==
LOC: ER 01-22 00:44 → NP 01-22 00:55
PROVIDERS: Admitting Provider Internal Medicine; Emergency Provider Emergency Medicine; Visit Provider Internal Medicine
DX: F31.10 Bipolar disorder, current episode manic without psychotic features, unspecified (principal)
CPT/HCPCS: 36415; 80053; 80306; 80307; 85025; 93005; 97165; 99238; 99285; Q0163

== ENCOUNTER → 2023-04-14 10:16 | Outpatient (BNVA) | payer MEDICARE, MEDICAID, OTHER, SELFPAY | PROVIDERS: Visit Provider Psychiatry & Neurology Psychiatry | DX: Z79.899 Other long term (current) drug therapy (principal) | CPT/HCPCS: 80061; 83036 ==